=== PATIENT | female | born 1960 | race Caucasian/White ===

== ENCOUNTER → 2017-12-13 | Outpatient (CLI) | payer OTHER ==
[2016-11-09 12:43] VITALS: BMI 26.9
[~2017-12-13] MED LIST: ASPI-757 PO; DAR100 PO; FLUT16SP19 NS; GUAI-545 PO; LEVO137T22 PO; LEVO150T72 PO; MOM PO; PER PO; POLY17PO25 PO
[2017-12-13 15:45] LABS: PLATELET COUNT, AUTOMATED 228 K/uL (150-450)
== END ==
LOC: LAB 15:08
PROVIDERS: ATTEND Orthopaedic Surgery Hand Surgery
DX: M79.672 Pain in left foot (principal); M79.89 Other specified soft tissue disorders
CPT/HCPCS: 36415; 84550; 85025; 85651; 86038; 86140; 86430

== ENCOUNTER → 2018-04-16 | Outpatient (CLI) | payer OTHER ==
[2016-11-09 12:43] VITALS: BMI 26.9
--- NOTE | 2018-04-17 13:40 | RADIOLOGY IMAGING REPORT ---
[place] [facility] [place] NAME: MARY MCARTHUR : [id number] MR: [id number] V: [id number] EXAM DATE: [id number] ORDERING PHYSICIAN: VILLA BOSWELL TECHNOLOGIST: Luisa Olmedo PROCEDURE:BILATERAL DIGITAL SCREENING MAMMOGRAM WITH CAD ASSISTED INTERPRETATION & 3D TOMOSYNTHESIS COMPARISON:04/14/17, 12/25/14, 10/23/13 INDICATIONS:SCREENING FINDINGS: Breast parenchyma has scattered fibroglandular densities. Indistinct small asymmetries in the posterior lateral Right breast in the 3 o'clock area are more evident than previously. (CC slice 35, MLO slice 15). Benign appearing ovoid 5mm mass in the deep lateral 3 o'clock area of the Left breast is not well shown previously. This is not as well shown in the MLO view (slice 34). DIAGNOSTIC CATEGORY 0--INCOMPLETE: NEED ADDITIONAL IMAGING EVALUATION. RECOMMENDATIONS: ADDITIONAL MAMMOGRAPHIC VIEWS REQUIRED: BILATERAL BREASTS. ULTRASOUND: BILATERAL BREASTS. 1. Bilateral diagnostic mammogram. Right & Left breast spot compression imaging in the CC & MLO projections on the Right & the MLO & lateral exaggerated CC projections on the Left as well as true MLO views of each breast. 2. Ultrasound of the Right and/or of the Left breast as indicated by the additional views. IMPRESSION: BIRADS 0: Incomplete, need additional imaging evaluation. Dictated by: Alfonso Barnett on 04/17/2018 at 10:57 Transcribed by: RIGO on 04/17/2018 at 13:21 Approved by: Alfonso Barnett on 04/17/2018 at 13:39 [facility]
== END ==
LOC: MAMO 03:41
PROVIDERS: ATTEND Obstetrics & Gynecology
DX: Z12.31 Encounter for screening mammogram for malignant neoplasm of breast (principal); R92.8 Other abnormal and inconclusive findings on diagnostic imaging of breast
CPT/HCPCS: 77063; 77067

== ENCOUNTER → 2018-05-01 | Outpatient (CLI) | payer OTHER ==
[2016-11-09 12:43] VITALS: BMI 26.9
--- NOTE | 2018-05-02 08:38 | RADIOLOGY IMAGING REPORT ---
FACILITY: [facility] PATIENT NAME: MARY MCARTHUR : [id number] MR: [id number] V: [id number] EXAM DATE: ORDERING PHYSICIAN: VILLA BOSWELL TECHNOLOGIST: Luisa Olmedo PROCEDURE:BILATERAL DIAGNOSTIC DIGITAL MAMMOGRAM WITH CAD ASSISTED INTERPRETATION & 3D TOMOSYNTHESIS COMPARISON:Prior mammograms 04/16/18, 04/14/17, 12/25/14, 10/23/13. INDICATIONS:FURTHER EVAL FINDINGS: The patient received spot compression views in the CC & MLO projections bilaterally. The indistinct small asymmetry in the posterior lateral Right breast is again noted. Today's Right breast Ultrasound revealed no sonographic correlate. A 6 month follow-up Right mammogram is recommended. The small non-appearing mass in the deep lateral 3 o'clock position Left breast appears compressible. DIAGNOSTIC CATEGORY 3--PROBABLY BENIGN FINDING. RECOMMENDATIONS: SIX MONTH FOLLOW-UP DIAGNOSTIC MAMMOGRAM: RIGHT BREAST. IMPRESSION: BIRADS 3: Probably benign finding. A 6 month follow-up Right mammogram is recommended unless clinical finding warrant more immediate attention. Dictated by: Disha Todd M.D. on 05/01/2018 at 14:56 Transcribed by: DEMETRI on 05/01/2018 at 15:10 Approved by: Disha Todd M.D. on 05/02/2018 at 8:37 [facility]
--- NOTE | 2018-05-02 08:38 | RADIOLOGY IMAGING REPORT ---
FACILITY: [facility] - [place] PATIENT NAME: MARY MCARTHUR : [id number] MR: [id number] V: [id number] EXAM DATE: ORDERING PHYSICIAN: VILLA BOSWELL TECHNOLOGIST: Luis F Polk RDMS, RD PROCEDURE:US RIGHT BREAST COMPARISON:Mammograms of 05/01/18 & 04/16/18. INDICATIONS:FURTHER EVAL FINDINGS: The upper outer quadrant of the Right breast is imaged sonographically revealing no sonographic correlate therefore a Right breast mammogram is recommended in 6 months to document stability of the parenchymal pattern unless clinical findings warrant more immediate attention. DIAGNOSTIC CATEGORY 3--PROBABLY BENIGN FINDING. RECOMMENDATIONS: SIX MONTH FOLLOW-UP DIAGNOSTIC MAMMOGRAM: RIGHT BREAST. IMPRESSION: BIRADS 3: Probably benign finding. A 6 month follow-up Right mammogram is recommended. Dictated by: Dsiha Todd M.D. on 05/01/2018 at 14:58 Transcribed by: DEMETRI on 05/01/2018 at 15:16 Approved by: Disha Todd M.D. on 05/02/2018 at 8:37 [facility]
== END ==
LOC: MAMO 00:50
PROVIDERS: ATTEND Obstetrics & Gynecology
DX: R92.2 Inconclusive mammogram (principal)
CPT/HCPCS: 77062; 77066

== ENCOUNTER → 2018-07-24 | Outpatient (REF) | payer OTHER ==
[2016-11-09 12:43] VITALS: BMI 26.9
== END ==
LOC: ZZSENDIN 12:30
PROVIDERS: ATTEND Urology
DX: N39.0 Urinary tract infection, site not specified (principal)
CPT/HCPCS: 87088

== ENCOUNTER → 2018-12-13 | Outpatient (CLI) | payer OTHER ==
[2016-11-09 12:43] VITALS: BMI 26.9
--- NOTE | 2018-12-14 09:26 | RADIOLOGY IMAGING REPORT ---
FACILITY[place] [facility] [place]IENT NAME: MARY MCARTHUR : [id number] MR: [id number] V: [id number] EXAM DATE: ORDERING PHYSICIAN: ISMAEL VILLATORO TECHNOLOGIST: Regina Jaramillo PROCEDURE:RIGHT DIGITAL DIAGNOSTIC MAMMOGRAM WITH CAD ASSISTED INTERPRETATION & 3D TOMOSYNTHESIS COMPARISON:Prior mammograms 05/01/18, 04/16/18, 04/14/17, 12/25/14, 10/23/13. INDICATIONS:6 MO F/U FINDINGS: The patient received a full field Right CC & MLO views in addition to Spot compression view in the Right MLO projection. The focal area of increased density in the upper outer quadrant of the Right breast appears less prominent when compared to the prior study and is more compressible. There is no other interval change identified. DIAGNOSTIC CATEGORY 3--PROBABLY BENIGN FINDING. RECOMMENDATIONS: SIX MONTH FOLLOW-UP SCREENING MAMMOGRAM: BILATERAL BREASTS. IMPRESSION: BIRADS 3: Probably benign finding. A 6 month follow-up bilateral mammogram is recommended at which time the patient will be due for her annual mammogram. Dictated by: Disha Todd M.D. on 12/13/2018 at 18:02 Transcribed by: DEMETRI on 12/14/2018 at 9:21 Approved by: Disha Todd M.D. on 12/14/2018 at 9:25 [facility]
== END ==
LOC: MAMO 00:44
PROVIDERS: ATTEND Physician Assistant
DX: R92.8 Other abnormal and inconclusive findings on diagnostic imaging of breast (principal)
CPT/HCPCS: 77061; 77065

== ENCOUNTER → 2019-03-01 | Outpatient (CLI) | payer OTHER ==
[2016-11-09 12:43] VITALS: BMI 26.9
[2019-03-01 16:22] LABS: PLATELET COUNT, AUTOMATED 253 K/uL (150-450)
== END ==
LOC: LAB 15:25
DX: D22.5 Melanocytic nevi of trunk (principal); D22.39 Melanocytic nevi of other parts of face; L29.8 Other pruritus; M12.9 Arthropathy, unspecified
CPT/HCPCS: 36415; 82040; 82247; 82248; 82310; 82374; 82435; 82565; 82947; 84075; 84132; 84155; 84295; 84439; 84443; 84450; 84460; 84520; 85025; 86038

== ENCOUNTER → 2019-04-11 | Outpatient (CLI) | payer OTHER ==
[2016-11-09 12:43] VITALS: BMI 26.9
== END ==
LOC: LAB 07:52
PROVIDERS: ATTEND Urology
DX: N39.0 Urinary tract infection, site not specified (principal)
CPT/HCPCS: 81001; 87088

== ENCOUNTER → 2019-06-13 | Outpatient (CLI) | payer OTHER ==
[2016-11-09 12:43] VITALS: BMI 26.9
== END ==
LOC: LAB 10:22
PROVIDERS: ATTEND Surgery
DX: L98.9 Disorder of the skin and subcutaneous tissue, unspecified (principal)
CPT/HCPCS: 88305